=== PATIENT | male | born 1950 | race Caucasian/White ===

== ENCOUNTER → 2018-04-22 | Outpatient (CLI) | payer MEDICARE, OTHER ==
[~2018-04-22] MED LIST: ACTIGALL300 MG PO; ALLOPURINOL 10100 M1 PO; ASPIR 8181 MG PO; B-COMPLEX TABL0.4 MG PO; CHOLESTYRAMINE P4 GM PO; COZAAR 25 MG TA25 M2 PO; CYCLOSPORINE25 M1 PO; FLECAINIDE ACET50 M1 PO; FOLIC ACID1 MG PO; LOPRESSOR25 PO; LOPRESSOR50 PO; MYCOPHENOLIC A360 MG PO; PREDNISONE 5 MG5 M1 PO; ROCEPHIN 11 GM/1001 IV; SODIUM BICARB PO; VITAMIN D3400 UNIT PO; [UNRECOGNIZED DRUG - OTHER]
== END ==
LOC: M.LAB 10:30 → M.MRI 11:30
DX: N28.1 Cyst of kidney, acquired (principal); R50.9 Fever, unspecified; R79.89 Other specified abnormal findings of blood chemistry; E11.9 Type 2 diabetes mellitus without complications; M81.0 Age-related osteoporosis without current pathological fracture; Z94.4 Liver transplant status; Z90.49 Acquired absence of other specified parts of digestive tract

== ENCOUNTER → 2018-04-26 | Outpatient (CLI) | payer MEDICARE, OTHER ==
[2018-04-26 15:01] LABS: HEMATOCRIT 30.4 % (42.0-52.0); HEMOGLOBIN 10.2 gm/dL (14.0-18.0); MCH 30.3 pg (26.0-34.0); MCHC 33.5 g/dL (28.0-37.0); MCV 90.3 fL (80.0-100.0); MPV 8.4 fl. (7.2-11.1); NUCLEATED RBCS 0 /100WBC; PLATELET COUNT* 244 thou/uL (150-400); RBC 3.37 mil/uL (4.50-6.00); RDW-CV 14.8 % (10.5-14.5); WBC 11.8 thou/uL (4.0-11.0)
[2018-04-26 15:23] LABS: ALBUMIN 3.1 g/dL (3.4-5.0); CREATININE 1.6 mg/dL (0.6-1.3); POTASSIUM 4.2 mmol/L (3.5-5.1); TOTAL BILIRUBIN 4.5 mg/dL (<0.1-1.0); TOTAL PROTEIN 6.8 g/dL (6.4-8.2)
[2018-04-26 15:49] LABS: ABSOLUTE LYMPHOCYTES 0.5 thou/uL (0.8-5.3); ABSOLUTE MONOCYTES 1.5 thou/uL (0.0-1.2); ABSOLUTE NEUTROPHILS 9.8 thou/uL (1.6-8.1); PLATELET ESTIMATE ADEQUATE
== END ==
LOC: M.LAB 14:27
PROVIDERS: Nurse Practitioner Adult Health
DX: R68.83 Chills (without fever) (principal); R11.10 Vomiting, unspecified; M81.0 Age-related osteoporosis without current pathological fracture; Z94.4 Liver transplant status

== ENCOUNTER 2018-04-27 09:41 | Inpatient (IN) | payer MEDICARE, OTHER ==
[2018-04-27] VITALS (8 sets, daily range): BP systolic 94–115; BP diastolic 51–63
[~2018-04-27] VITALS: Ht 162.6 cm; Wt 47.5 kg
--- NOTE | ~2018-04-27 | PROC ---
[address] [address] PROCEDURE REPORT Name: VICENTE LEHMAN Room: [address] IN M.R.#: [id number] Admission: 04/27/18 Attend Phys: Jazz Donald Discharge: 05/03/18 Date of : 50 Report #: [id number] THIS REPORT FOR: //name// For GI report, please see the Provation report in Perceptive 7 content. By: 0857Medical Records Staff JORDY /EVE
[2018-04-27 09:55] LABS: URINE BLOOD 2+ (Negative); URINE CLARITY CLEAR; URINE COLOR YELLOW; URINE GLUCOSE-RANDOM NEGATIVE (Negative); URINE KETONES NEGATIVE (Negative); URINE LEUKOCYTES-REFLEX NEGATIVE (Negative); URINE NITRITE-REFLEX NEGATIVE (Negative); URINE PROTEIN 1+ (Negative); URINE SPECIFIC GRAVITY 1.015 (1.005-1.030); URINE UROBILINOGEN 0.2 E.U./dl (0.2-1.0)
[2018-04-27 09:59] LABS: ICTOTEST (BILI CONFIRMATORY) Positive (Negative); URINE BILIRUBIN 2+ (Negative)
[2018-04-27] MEDS ORDERED: CYCLOSPORINE25 M1 PO (10:03)
[2018-04-27] MEDS ORDERED: [UNRECOGNIZED DRUG - OTHER] (10:04)
[2018-04-27] MEDS ORDERED: ACTIGALL300 MG PO (10:04)
[2018-04-27] MEDS ORDERED: FOLIC ACID1 MG PO (10:04)
[2018-04-27 10:05] LABS: BACTERIA-REFLEX 1-9 Few /HPF (None Seen); MUCUS None Seen strn/LPF (None Seen); SQUAMOUS 0-3 Few /LPF (0-3); URINE RBC 3-10 Few /HPF (0-2); URINE WBC-REFLEX 0-5 Rare /HPF (0-5)
[2018-04-27] MEDS ORDERED: ALLOPURINOL 10100 M1 PO (10:05)
[2018-04-27] MEDS ORDERED: PREDNISONE 5 MG5 M1 PO (10:05)
[2018-04-27 10:06] LABS: CASTS None Seen /LPF (None Seen); CRYSTALS None Seen /LPF (None Seen)
[2018-04-27] MEDS ORDERED: ASPIR 8181 MG PO (10:06)
[2018-04-27] MEDS ORDERED: B-COMPLEX TABL0.4 MG PO (10:06)
[2018-04-27] MEDS ORDERED: VITAMIN D3400 UNIT PO (10:06)
[2018-04-27] MEDS ORDERED: COZAAR 25 MG TA25 M2 PO (10:08)
[2018-04-27] MEDS ORDERED: SODIUM BICARB PO (10:08)
[2018-04-27 10:13] LABS: HEMATOCRIT 28.9 % (42.0-52.0); NUCLEATED RBCS 0 /100WBC; WBC 11.6 thou/uL (4.0-11.0)
[2018-04-27 10:17] LABS: HEMOGLOBIN 9.9 gm/dL (14.0-18.0); MCH 30.5 pg (26.0-34.0); MCHC 34.2 g/dL (28.0-37.0); MCV 89.1 fL (80.0-100.0); MPV 8.9 fl. (7.2-11.1); PLATELET COUNT* 206 thou/uL (150-400); RBC 3.24 mil/uL (4.50-6.00); RDW-CV 14.8 % (10.5-14.5)
[2018-04-27 10:20] LABS: ANION GAP 11 mmol/L (7-16); APTT 34.1 Seconds (25.0-31.3); BUN 40 mg/dL (7-18); CHLORIDE 88 mmol/L (98-107); CO2 22 mmol/L (21-32); GLUCOSE 123 mg/dL (70-99); INR 1.1; POTASSIUM 3.8 mmol/L (3.5-5.1); PROTIME 10.7 Seconds (9.20-11.50); SODIUM 121 mmol/L (136-145)
[2018-04-27 10:31] LABS: ALBUMIN 2.8 g/dL (3.4-5.0); ALKALINE PHOSPHATASE 352 U/L (46-116); LIPASE 331 U/L (73-393); NT-PRO BRAIN NAT PEPTIDE 6467 pg/mL (<300); SGOT 60 U/L (15-37); SGPT 72 U/L (30-65); TOTAL BILIRUBIN 4.5 mg/dL (<0.1-1.0); TOTAL PROTEIN 6.9 g/dL (6.4-8.2); TROPONIN-I LEVEL <0.06 ng/mL (<0.06)
[2018-04-27] MEDS ORDERED: CHOLESTYRAMINE P4 GM PO (10:36)
[2018-04-27 11:00] LABS: ABSOLUTE LYMPHOCYTES 0.5 thou/uL (0.8-5.3); ABSOLUTE MONOCYTES 1.2 thou/uL (0.0-1.2); PLATELET ESTIMATE ADEQUATE
[2018-04-27 11:02] LABS: MACROCYTES Occasional; MICROCYTES Occasional; POLYCHROMASIA Occasional
--- NOTE | 2018-04-27 13:17 | NUR ---
PT ADMITTED TO ICU ROOM 2 AROUND 1250. REFER TO ASSESSMENT. PT HAS NO C/O PAIN AT TIME OF ADMISSION. PT REPORTS THAT HE HAS EPIGASTRIC ABDOMINAL PAIN WITH PALPATION. VSS. PT NOTED TO BE IN SR WITH RATE IN THE 90'S. PT VOICES NO CONCERNS AT THIS TIME. AT BEDSIDE. CLWR. WCTM.
--- NOTE | 2018-04-27 14:33 | EKG ---
[place] [address] ELECTROCARDIOGRAM REPORT Name: VICENTE LEHMAN Room: [address] IN M.R.#: [id number] Admission: 04/27/18 Attend Phys: Jazz Donald Discharge: Date of : 50 Report #: [id number] THIS REPORT FOR: //name// [facility] ED Test Date: 2018-04-27 Test Time: 09:52:06 Pat Name: VICENTE LEHMAN Department: Room: Gender: On Awake Counselor: : 1950 Requested By: Gustabo Vargas Order Number: [id number] MD: Nilton Gonzales Measurements Intervals [place] Rate: 126 P: 55 FL: 156 QRS: -39 QRSD: 90 T: 67 QT: 296 QTc: 429 Interpretive Statements Sinus tachycardia Left axis deviation ST elevation suggests consistent with early repolarization No previous ECG available for comparison Electronically Signed On 04-27-2018 14:32:56 CDT by Nilton Gonzales [email or web address] <ELECTRONICALLY SIGNED> By: Nilton Gonzales MD, [facility] 04/27/18 1432 0952 [id number] Nilton Gonzales MD, [facility] /EPI
--- NOTE | 2018-04-27 14:33 | EKG ---
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
--- NOTE | 2018-04-27 15:48 | 2DMMODE ---
[place] [address] 2 D/M-MODE ECHOCARDIOGRAM Name: VICENTE LEHMAN Rosario Room: [address] IN [facility]#: [id number] Admission: 04/27/18 Attend Phys: Shagufta Wu Discharge: Date of : 50 Date of Service: 04/27/18 1547 Report #: [id number] THIS REPORT FOR: //name// APPROVED REPORT Study performed: 04/27/2018 14:51:06 EXAM: Comprehensive 2D, Doppler, and color-flow Echocardiogram Patient Location: In-Patient Room #: 002 Status: routine BSA: 1.51 HR: 86 bpm BP: 101/51 mmHg Rhythm: NSR Other Information Study Quality: Good Indications Arrhythmia 2D Dimensions LVEF(%): 62.37 (>50%) IVSd: 10.77 (7-11mm) LVOT Diam: 18.28 (18-24mm) LVDd: 41.04 mm PWd: 10.44 (7-11mm) Ascending Ao: 30.99 (22-36mm) LVDs: 27.39 (25-40mm) Aortic Root: 29.30 mm Bello's LVEF: 62.37 % Volumes Left Atrial Volume (Systole) LA ESV Index: 30.70 mL/m2 Aortic Valve AoV Peak Misael.: 1.14 m/s AO Peak Gr.: 5.16 mmHg LVOT Max P.45 mmHg AO Mean Gr.: 3.04 mmHg LVOT Mean P.62 mmHg LVOT Max V: 0.93 m/s AO V2 VTI: 18.27 cm LVOT Mean V: 0.58 m/s KIMBERLY (VTI): 2.17 cm2 LVOT V1 VTI: 15.15 cm Mitral Valve E/A Ratio: 1.96 [place] [address] 2 D/M-MODE ECHOCARDIOGRAM Name: VICENTE LEHMAN Rosario Room: [address] IN .R.#: [id number] Admission: 04/27/18 Attend Phys: Shagufta Wu Discharge: Date of : 50 Date of Service: 04/27/18 1547 Report #: [id number] MV Decel. Time: 169.90 ms MV E Max Misael.: 0.77 m/s MV PHT: 49.27 ms MVA (PHT): 4.47 cm2 TDI E/Lateral E': 3.85 E/Medial E': 3.50 Medial E' Misael.: 0.22 m/s Lateral E' Misael.: 0.20 m/s Pulmonary Valve PV Peak Misael.: 1.12 m/s PV Peak Gr.: 4.98 mmHg Tricuspid Valve RAP Estimate: 5.00 mmHg TR Peak Gr.: 22.41 mmHg RVSP: 27.41 mmHg PA Pressure: 27.41 mmHg Left Ventricle The left ventricle is normal size. There is normal LV segmental wall motion. There is normal left ventricular wall thickness. Left ventricular systolic function is normal. LVEF is 55-60%. The left ventricular diastolic function is normal. Right Ventricle Right ventricle is dilated. The right ventricular systolic function is normal. Atria The left atrium size is normal. Right atrium is dilated. Aortic Valve The aortic valve is normal in structure. No aortic regurgitation is present. There is no aortic valvular stenosis. Mitral Valve The mitral valve is normal in structure. Trace mitral regurgitation. No evidence of mitral valve stenosis. Tricuspid Valve The tricuspid valve is normal in structure. Mild tricuspid regurgitation. No pulmonary hypertension. The RVSP is 28 mmHg. Pulmonic Valve The pulmonary valve is normal in structure. [place] [address] 2 D/M-MODE ECHOCARDIOGRAM Name: VICENTE LEHMAN Room: [address] IN [facility]#: [id number] Admission: 04/27/18 Attend Phys: Shagufta Wu Discharge: Date of : 50 Date of Service: 04/27/18 1547 Report #: [id number] valvular regurgitation. Great Vessels The aortic root is normal in size. IVC is normal in size and collapses with >50% inspiration Pericardium There is no pericardial effusion. <Conclusion> The left ventricle is normal size. There is normal left ventricular wall thickness. Left ventricular systolic function is normal. LVEF is 55-60%. The left ventricular diastolic function is normal. Mild tricuspid regurgitation. No pulmonary hypertension. The RVSP is 28 mmHg. IVC is normal in size and collapses with >50% inspiration <ELECTRONICALLY SIGNED> By: Nilton Gonzales MD, FACC 04/27/18 1547 1547 1547 Nilton Gonzales MD, FACC /INF
--- NOTE | 2018-04-27 18:05 | NUR ---
PT PROGRESSING TOWARDS GOALS THIS SHIFT. VSS. TELE SR WITH RATE IN THE 80-90'S. IV ABTS ADMINISTERED ORDERED. PT GIVEN IVF BOLUS PER SEPSIS PROTOCOL. MAG REPLACED THIS SHIFT. NO OTHER CONCERNS AT THIS TIME. CLWR. WCTM.
[2018-04-28] VITALS: BP 97/55
[2018-04-28 02:00] VITALS: BP 106/59
[2018-04-28 04:00] VITALS: BP 109/62
[2018-04-28 04:39] LABS: INR 1.2; PROTIME 11.4 Seconds (9.20-11.50)
[2018-04-28 04:45] LABS: HEMATOCRIT 23.5 % (42.0-52.0); MCH 31.3 pg (26.0-34.0); MCHC 34.1 g/dL (28.0-37.0); MPV 9.2 fl. (7.2-11.1); RBC 2.56 mil/uL (4.50-6.00); RDW-CV 15.1 % (10.5-14.5); WBC 5.2 thou/uL (4.0-11.0)
[2018-04-28 04:51] LABS: ALBUMIN 2.2 g/dL (3.4-5.0); CALCIUM 8.5 mg/dL (8.5-10.1); CREATININE 1.6 mg/dL (0.6-1.3); TOTAL BILIRUBIN 2.2 mg/dL (<0.1-1.0); TOTAL PROTEIN 5.9 g/dL (6.4-8.2)
--- NOTE | 2018-04-28 05:39 | NUR ---
ASSUMED CARE OF PATIENT AT 1900. VSS, AFEBRILE. UP TO BSC OFTEN TO VOID AND BM. VERY LOOSE STOOL, NO ODOR. DENIES PAIN, SOA OR N/V. CALLS OUT APPROPRIATELY. REMAINS IN S/R. PROGRESSING TOWARDS POC GOALS SLOWLY.
[2018-04-28 06:00] VITALS: BP 106/59
--- NOTE | 2018-04-28 08:01 | CON ---
[address] [address] CONSULTATION Name: VICENTE LEHMAN Rosario Room: [address] IN M.R.#: [id number] Admission: 04/27/18 Attend Phys: Jazz Donald Discharge: Date of : 50 Report #: [id number] THIS REPORT FOR: //name// CC: Kimmie Wu DATE OF SERVICE: 04/27/2018 Infectious Disease Consultation DATE OF ADMISSION: 04/27/2018 ATTENDING PHYSICIAN: Dr. Wu. REASON FOR EVALUATION: Septicemia. HISTORY OF PRESENT ILLNESS: Chart reviewed, patient examined. This is a 67-year-old gentleman with history of hepatic transplantation. This has been longstanding. He is on combination immunosuppressive therapy, who has actually not been followed by packer and carry out, has been feeling generally worse, somewhat nonspecifically perhaps some malaise, has had some anorexia with poor p.o. intake and some weight loss as well and abdominal related discomfort with recent fevers. He was evaluated and as part of the evaluation, outpatient blood culture was collected, now growing Gram-positive cocci. He returned today and was admitted to the hospital. He is in the intensive care unit. LFTs have chronically been elevated with a total bilirubin of 5.[address] abdomen and pelvis: Diffuse fluid throughout the colon suggesting diarrhea. No obvious inflammatory small or large bowel process. No acute intrinsic hepatic abnormalities. He has been started empirically on vancomycin, as well as meropenem. He is fairly lucid at this point. He denies any particular exposure history that he is aware of, although he does spend a lot of time cutting grass. No animal exposure, no dietary indiscretion. ALLERGIES: Listed to PHENOTHIAZINE, CEFUROXIME, PROMETHAZINE. CURRENT MEDICATIONS: Include levofloxacin, vancomycin and meropenem, as well as pantoprazole. Additional medicines include cyclosporine, mycophenolate, prednisone, ursodiol, folic acid, allopurinol, aspirin, cholecalciferol, losartan, and cholestyramine. PAST MEDICAL HISTORY: History of hepatitis C that lead to cirrhosis and liver transplant in 1989, hypertension, reflux, hyperlipidemia, headache, heart defect with surgery in 1958. SOCIAL HISTORY: Nonsmoker, [place] [address] CONSULTATION Name: VICENTE LEHMAN Room: [address] IN [facility].#: [id number] Admission: 04/27/18 Attend Phys: Jazz Donald Discharge: Date of : 50 Report #: [id number] FAMILY HISTORY: Noncontributory. REVIEW OF SYSTEMS: Some mild dyspnea. PHYSICAL EXAMINATION: GENERAL: He is certainly uncomfortable. He is in ybeo-tl-kvemjhwu distress. He does appear ill, not overtly toxic. VITAL SIGNS: Temperature 99.5 max, more recently 99.2, pulse 85, respirations 20, blood pressure is 99/57. SKIN: Warm, is jaundiced. HEENT: Unremarkable. NECK: Supple. LUNGS: Clear breath sounds, somewhat diminished. HEART: Regular. I do not appreciate a murmur. ABDOMEN: Mildly distended. It is soft. There are no overt peritoneal signs. GENITOURINARY AND RECTAL: Deferred. DATA: Echo, EF of 55% to 60%. No significant valvular abnormalities. CT abdomen and pelvis as described above. CBC: White count 11.6, H and H 9.9 and 28.9, platelets of 206, did have 2% bandemia. Electrolytes: Sodium 121, potassium 3.8, chloride 88, bicarbonate is 22, BUN and creatinine 40 and 2.0, anion gap of 11. AST of 60, ALT of 72, total bilirubin of 4.5, albumin of 2.8. Total protein 6.9. Lactic acid 1.3. Blood cultures collected on the 2nd is Gram-positive cocci, awaiting ID and susceptibility. Chest x-ray: Some mild chronic interstitial changes, no acute process. Urinalysis: 0 to 5 white cells. ASSESSMENT: Positive blood culture in setting of immunosuppression. He has had chronically elevated liver function tests. At one point in 2016, he apparently underwent a liver transplantation. There was no evidence of rejection at that point, did discussion about possibility of false positive in this setting with the blood culture, will await. It may give us some clue. I agree with empiric treatment though given his high risk of potentially severe infection. We will wait to know . Secondary blood cultures have been collected as well. <ELECTRONICALLY SIGNED> By: Lorne Zendejas MD 04/28/18 0801 1746 [id number] Zendejas MD /nt
--- NOTE | 2018-04-28 10:32 | NUR ---
ORDER RECEIVED TO TRANSFER CAR OF PATIENT TO MED/TELE UNIT. ROOM OBTAINED AND REPORT CALLED TO BRADY VELASQUEZ. NEW MEDICATION ORDERS RECEIVED PATIENT WAS TRANSFERING UNITS. PATINET HAS BEEN BRADYCARDIC TO TACHYCARDIC IN ICU, CARDIOLOGY ADJUSTED MEDICATIONS TO CORRECT DISRHYTHMIA. STABLE FOR TRANSFER TO MED/TELE.
[2018-04-28 10:55] VITALS: BP 121/67
--- NOTE | 2018-04-28 10:59 | NUR ---
PATIENT CAME TO THE FLOOR FROM THE ICU IN STABLE CONDITION, NO COMPLAINTS AT THIS TIME. ORIENTED TO ROOM, QUESTIONS ANSWERED FOR PATIENT AND FAMILY. VITAL SIGNS STABLE. CALL LIGHT IS IN REACH, IS AT BEDSIDE. WILL CONTINUE TO MONITOR.
[2018-04-28 15:42] VITALS: BP 120/68
--- NOTE | 2018-04-28 17:32 | NUR ---
PATIENT CAME TO THE FLOOR FROM THE ICU IN STABLE CONDITION. NO COMPLAINTS OF ANY KIND AT THIS TIME. PATIENT IS UP AD CLEO IN ROOM AND HAS BEEN AMBULATING IN THE HALLS WITH . VITAL SIGNS HAVE BEEN STABLE ON ROOM AIR. CALL LIGHT IS IN REACH, WILL CONTINUE TO MONITOR.
[2018-04-29 00:01] VITALS: BP 116/71
[2018-04-29 04:33] VITALS: BP 116/65
[2018-04-29 05:12] LABS: ALBUMIN 2.2 g/dL (3.4-5.0); CREATININE 1.3 mg/dL (0.6-1.3); PHOSPHORUS* 2.8 mg/dL (2.5-4.9); POTASSIUM 3.5 mmol/L (3.5-5.1)
--- NOTE | 2018-04-29 05:21 | NUR ---
PATIENT SLEPT WELL DURING THIS SHIFT. PT DENIES PAIN/NAUSEA. PT UP AD CLEO TO BATHROOM. PT WITH FLUIDS/ANTIBIOTICS INFUSING PER DR ORDER. PT TACHY AND IRREGULAR ON ACCOUNTING INTERN. PT DENIES NEEDS AT THIS TIME. FREQUENTLY USED ITEMS AND CALL LIGHT WITHIN REACH. SIDERAILS UPX2. WILL CONTINUE TO MONITOR.
[2018-04-29 09:12] VITALS: BP 134/72
--- NOTE | 2018-04-29 10:32 | CON ---
[facility] [address] [place] [address] CONSULTATION Name: VICENTE LEHMAN Room: [address] IN M.R.#: [id number] Admission: 04/27/18 Attend Phys: Jazz Donald Discharge: Date of : 50 Report #: [id number] THIS REPORT FOR: //name// CC: Kimmie Wu DATE OF SERVICE: 04/27/2018 INDICATION: Supraventricular tachycardia. HISTORY OF PRESENT ILLNESS: The patient is a very pleasant 67-year-old gentleman status post orthotopic liver transplant 1989 in [place]. He is on antirejection medication for this. He was presenting to the hospital with 2 days' worth of fever and chills. He was unaware of his tachycardia. He was not having palpitations or chest discomfort. PAST CARDIAC HISTORY: He had "hole in his heart" repaired at the age of 9. I assume this was an ASD. He denies any other significant cardiac history. PAST MEDICAL HISTORY: 1. Status post orthotopic liver transplant, 1989. 2. History of hepatitis C, prior to that. 3. Hypertension. 4. Gastroesophageal reflux disease. 5. Hyperlipidemia. 6. History of common bile duct stones. 7. History of sepsis. 8. ASD repair as a child. ALLERGIES: CEFUROXIME, PHENOTHIAZINES, PROMETHAZINE. HOME MEDICATIONS: Cyclosporine 2 capsules p.o. b.i.d., mycophenolate mofetil 360 mg b.i.d., Ursodiol 1 capsule t.i.d., folate 1 mg t.i.d., allopurinol 100 mg 3 tablets daily, prednisone 2.5 mg daily, B complex tablet 50 mg daily, aspirin 81 mg daily, vitamin D 400 units daily, sodium bicarbonate tablet 1 b.i.d., losartan 25 mg half a tablet daily, cholestyramine 4 g daily. FAMILY HISTORY: Noncontributory. SOCIAL HISTORY: The patient does not smoke. He does not drink alcohol. PHYSICAL EXAMINATION: VITAL SIGNS: Blood pressure 105/55, pulse 90 and regular. GENERAL: This is a thin, pleasant gentleman, in no [place] [address] CONSULTATION Name: VICENTE LEHMAN Room: [address] IN [facility].#: [id number] Admission: 04/27/18 Attend Phys: Jazz Donald Discharge: Date of : 50 Report #: [id number]. HEENT: Extraocular muscles intact. Mucous membranes moist. NECK: Shows no jugular venous distention. There are no carotid bruits. CHEST: Reveals clear lung patterson. CARDIOVASCULAR: Reveals a regular rhythm, normal S1 and S2. I do not appreciate gallop or murmur. ABDOMEN: Reveals normal bowel sounds. The abdomen is soft, nontender. EXTREMITIES: Shows no edema. EKG on arrival shows supraventricular tachycardia. Labs are reviewed. Sodium 121, potassium 3.8, chloride 88, bicarbonate 22, BUN 40, creatinine 2.0, serum glucose 123, total bilirubin 4.5, alkaline phosphatase 352, ALT 72. NT-proBNP 6467. Troponin less than 0.06. White blood cell count 11.6, hemoglobin 9.9, platelet count 206,000. Chest x-ray: Mild chronic interstitial change without chronic acute lung disease. IMPRESSION AND RECOMMENDATIONS: 1. Paroxysmal supraventricular tachycardia, resolved with a single bolus of Adenocard. Blood pressure low normal presently. We will follow clinically and initiate medications if need be. 2. We will use Adenocard p.r.n. at this point in time. Echocardiogram ordered and pending. 3. Status post orthotopic liver transplant. Continuing antirejection medications as outlined above. 4. Sepsis, etiology not clear. Gastroenterology following. 5. Hypertension. Blood pressure presently low normal. He is on losartan traditionally. We will hold at this point in time. <ELECTRONICALLY SIGNED> By: Nilton Gonzales MD, FACC 04/29/18 1032 [id number] [id number] Gonzales MD, FACC /nt
--- NOTE | 2018-04-29 11:52 | NUR ---
INITIAL ASSESSMENT: Pt evaluated for d/c planning needs. Reviewed chart and spoke with nurse, pt and spouse. Pt is alert and oriented. Pt lives in house with spouse and was independent with ADL's prior to admission. Pt has walker and cane, but does not use on a regular basis. Pt had home health in the distant past. Pt remains active in the community and is still driving. Pt plans on returning home on d/c from hospital. Will remain available to assist as needed.
[2018-04-29 12:01] VITALS: BP 101/59
[2018-04-29 15:25] VITALS: BP 124/70
[2018-04-29 16:36] LABS: ALBUMIN 2.6 g/dL (3.4-5.0); DIRECT BILIRUBIN 1.3 mg/dL (<0.1-0.3); TOTAL BILIRUBIN 1.5 mg/dL (<0.1-1.0); TOTAL PROTEIN 6.8 g/dL (6.4-8.2)
--- NOTE | 2018-04-29 18:51 | NUR ---
PATIENT HAS BEEN ALERT AND ORINETED TODAY VERY PLEASANT, UP AD CLEO IN ROOM ROOM AND WALKING IN THE HALLWAYS WITH . PATIENT HAS NO COMPLAINTS OF PAIN AT THIS TIME. APPETITE IS GOOD, TOLERATING DIET WELL. PATIENT WILL BE NPO AFTER MIDNIGHT FOR PROCEDURE TOMORROW. VITAL SIGNS HAVE BEEN STABLE ON ROOM AIR, WILL CONTINUE TO MONITOR.
[2018-04-29 20:00] VITALS: BP 127/70
[2018-04-30] VITALS: BP 115/64
[2018-04-30 03:55] VITALS: BP 158/74
[2018-04-30 03:57] LABS: HEMATOCRIT 27.6 % (42.0-52.0); HEMOGLOBIN 9.4 gm/dL (14.0-18.0); MCH 30.9 pg (26.0-34.0); MPV 8.5 fl. (7.2-11.1); RBC 3.04 mil/uL (4.50-6.00); RDW-CV 15.4 % (10.5-14.5); WBC 5.4 thou/uL (4.0-11.0)
[2018-04-30 04:09] LABS: ALBUMIN 2.5 g/dL (3.4-5.0); CALCIUM 8.5 mg/dL (8.5-10.1); CREATININE 1.2 mg/dL (0.6-1.3); TOTAL BILIRUBIN 1.4 mg/dL (<0.1-1.0); TOTAL PROTEIN 6.5 g/dL (6.4-8.2)
[2018-04-30 04:11] LABS: POTASSIUM 2.8 mmol/L (3.5-5.1)
--- NOTE | 2018-04-30 05:25 | NUR ---
PT SLEPT AT INTERVALS DURING THE NIGHT, PLEASANT, NPO SINCE MIDNIGHT FOR PROCEDURE TODAY, UP AD CLEO, CALL LIGHT IN REACH, WILL CONTINUE TO MONITOR
[2018-04-30 07:55] VITALS: BP 129/69
[2018-04-30 09:51] VITALS: BP 158/74
--- NOTE | 2018-04-30 11:35 | NUR ---
FARAZ faxed information to [employer] [facility] [phone] fax [phone] to check pt benefits for IV abx just in case pt would be going home with IV abx at time of dc. FARAZ to continue to follow to assist with safe dc planning.
--- NOTE | 2018-04-30 16:21 | NUR ---
ASSUMED CARE OF PATIENT AT 1604 AFTER TRANSFER TO ROOM 221 FROM MED/SURG ROOM 309. PATIENT AWAKE, ALERT, AND ORIENTED APPROPRIATELY. UP AD CLEO. DENIES NEEDS AT THIS TIME. CALL LIGHT WITHIN REACH. NURSING WILL CONTINUE TO MONITOR.
[2018-04-30 20:00] VITALS: BP 130/75
[2018-05-01] VITALS: BP 94/56
[2018-05-01 04:00] VITALS: BP 127/74
[2018-05-01 05:03] LABS: HEMATOCRIT 25.8 % (42.0-52.0); HEMOGLOBIN 8.7 gm/dL (14.0-18.0); MCHC 33.7 g/dL (28.0-37.0); MCV 91.7 fL (80.0-100.0); RBC 2.81 mil/uL (4.50-6.00); RDW-CV 15.1 % (10.5-14.5); WBC 4.1 thou/uL (4.0-11.0)
--- NOTE | 2018-05-01 05:07 | NUR ---
PATIENT RESTED IN BED, NO ACUTE CHANGES. PATIENT DID NOT SHOW SIGNS OF DISTRESS. FALL PRECAUTIONS IN PLACE, CALL LIGHT WITHIN REACH. PATIENT IS NPO.
[2018-05-01 05:21] LABS: ALBUMIN 2.2 g/dL (3.4-5.0); CREATININE 1.3 mg/dL (0.6-1.3); POTASSIUM 3.4 mmol/L (3.5-5.1); TOTAL BILIRUBIN 1.2 mg/dL (<0.1-1.0); TOTAL PROTEIN 5.6 g/dL (6.4-8.2)
[2018-05-01 07:50] VITALS: BP 134/97
--- NOTE | 2018-05-01 09:53 | NUR ---
RECEIVED REPORT FROM MARKUS AND ASSUMED CARE OF PT @ 7752.PT IS A/O,VSS,TRACING SR ON THE MONITOR.LUNG SOUNDS ARE CLEAR.LAST BM WAS YESTERDAY.IV LEFT FOREARM PATENT WITH FLUIDS RUNNING @ 100ML/HR.IV RIGHT WRIST PATENT AND SALINE LOCKED.PT IS CALM AND COOPERATIVE WITH NO C/O PAIN AT TIME OF ASSESSMENT.PT IS UP AD CLEO.LEFT RESTING IN BED WITH CALL LIGHT WITHIN REACH.PT AMBULATED IN HALLWAY THIS AM.PT WAITING FOR ERCP PROCEDURE TO BE COMPLETED.WILL CONTINUE TO MONITOR.
[2018-05-01 15:43] VITALS: BP 147/84
--- NOTE | 2018-05-01 18:27 | NUR ---
VSS,CARDIAC MONITORING IN PLACE WITH NO CHANGES.PT PROGRESSING TOWARDS GOALS.DENIED PAIN.IVF INFUSING PER ORDERS.IV ANTIBIOTICS COMPLETED.PT COMPLETED ERCP PROCEDURE WITH NO COMPLICATIONS.NO NEW ORDERS.PT INFORMED OF PLAN OF CARE AND COMMUNICATES UNDERSTANDING.HOURLY ROUNDING COMPLETED FOR PT SAFETY.CALL LIGHT WITHIN REACH.WILL CONTINUE TO MONITOR FOR DURATION OF SHIFT.
[2018-05-01 20:00] VITALS: BP 121/72
[2018-05-02] VITALS (7 sets, daily range): BP systolic 107–140; BP diastolic 68–81
[2018-05-02 05:13] LABS: HEMATOCRIT 24.4 % (42.0-52.0); HEMOGLOBIN 8.3 gm/dL (14.0-18.0); MCHC 34.2 g/dL (28.0-37.0); MCV 90.6 fL (80.0-100.0); MPV 8.7 fl. (7.2-11.1); RBC 2.69 mil/uL (4.50-6.00); RDW-CV 15.3 % (10.5-14.5); WBC 3.7 thou/uL (4.0-11.0)
--- NOTE | 2018-05-02 05:24 | NUR ---
PATIENT RESTED IN BED, NO ACUTE CHAGES. PATIENT DENIES PAIN, PATIENT IS NOT SHOWING SIGNS OF DISTRESS. FALL PRECAUTIONS IN PLACE, CALL LIGHT WITHIN REACH, HOURLY ROUNDING OBSERVED.
[2018-05-02 06:03] LABS: ALBUMIN 2.2 g/dL (3.4-5.0); CALCIUM 7.9 mg/dL (8.5-10.1); MAGNESIUM 1.6 mg/dL (1.8-2.4); POTASSIUM 3.1 mmol/L (3.5-5.1); TOTAL BILIRUBIN 1.5 mg/dL (<0.1-1.0); TOTAL PROTEIN 5.5 g/dL (6.4-8.2)
--- NOTE | 2018-05-02 07:48 | NUR ---
RECEIVED REPORT FROM MARKUS AND ASSUMED CARE OF PT @ 8555.PT IS A/O,VSS,TRACING AFIB ON THE MONITOR.LUNG SOUNDS ARE CLEAR.LAST BM WAS YESTERDAY.IV RIGHT UPPER ARM PATENT WITH FLUIDS INFUSING PER ORDERS.PT IS CALM AND COOPERATIVE WITH NO C/O PAIN AT TIME OF ASSESSMENT.PT IS UP AD CLEO IN ROOM.CALL LIGHT WITHIN REACH.WILL CONTINUE TO MONITOR. GI SIGNED OFF.PT WANTS TO BE DISCHARGED.WAITING TO SEE HOSPITALIST.
--- NOTE | 2018-05-02 18:14 | NUR ---
VSS,MOOSE HUNTER IN PLACE WITH NO CHANGES THIS SHIFT.PT PROGRESSING TOWARDS GOALS.PT COMPLETED CT WITH CONTRAST TODAY.ELECTROLYTE REPLACEMENT.IVF INFUSING PER ORDERS.GI AND CARDIOLOGY SIGNED OFF OK WITH DISCHARGE ONCE OK.POSSIBLE DISCHARGE TOMORROW.HOURLY ROUNDING COMPLETED FOR PT SAFETY.CALL LIGHT WITHIN REACH.WILL CONTINUE TO MONITOR FOR DURATION OF SHIFT.
[2018-05-02 19:02] LABS: MAGNESIUM 1.6 mg/dL (1.8-2.4); POTASSIUM 3.9 mmol/L (3.5-5.1)
--- NOTE | 2018-05-02 20:00 | NUR ---
RECEIVED REPORT AND ASSUMED CARE OF PT, ASSESSMENT COMPLETED. PT DENIES AND COMPLAINTS. TELEMETRY ON SHOWING A-FIB. WILL CONT TO MONITOR AND ASSIST NEEDED.
[2018-05-03 04:00] VITALS: BP 142/90
[2018-05-03 05:14] LABS: HEMATOCRIT 25.5 % (42.0-52.0); HEMOGLOBIN 8.6 gm/dL (14.0-18.0); MCH 30.9 pg (26.0-34.0); MCV 91.1 fL (80.0-100.0); MPV 8.2 fl. (7.2-11.1); RBC 2.79 mil/uL (4.50-6.00); RDW-CV 15.2 % (10.5-14.5); WBC 4.3 thou/uL (4.0-11.0)
[2018-05-03 05:34] LABS: CALCIUM 7.2 mg/dL (8.5-10.1); CREATININE 1.2 mg/dL (0.6-1.3); MAGNESIUM 2.1 mg/dL (1.8-2.4); POTASSIUM 3.1 mmol/L (3.5-5.1)
--- NOTE | 2018-05-03 06:46 | NUR ---
SLEPT WELL ALL NIGHT. GAIT STEADY AROUND ROOM. TELEMETRY CONT TO SHOW A-FIB. NO CHANGE IN ASSESSMENT. ACHIEVED HS GOAL OF REST AND SAFETY. HOURLY ROUNDING OBSERVED.
[2018-05-03 08:00] VITALS: BP 132/86
--- NOTE | 2018-05-03 10:35 | NUR ---
ASSUMED RESPONSIBILITY OF PT THIS AM PT IS ALERT AND ORIENTED BUT FORGETFUL ABOUT CERTAIN MEDICATIONS OR EVENTS DENIES ANY PAIN REPLACING K+ TODAY REGULAR DIET TRACKING A FLUTTER ON THE MONITOR LSCTA [id number] LBM T-1 FAVIO IV GOING AT 100/H NS 1/2 PLAN FOR A PICC LINE TODAY TO GO HOME WITH IV ABT CALL LIGHT IN REACH WILL CONT TO MONITOR
[2018-05-03 12:00] VITALS: BP 122/66
[2018-05-03 13:27] VITALS: BP 122/66
--- NOTE | 2018-05-03 13:34 | NUR ---
CONSULTED TO PLACE PICC FOR PT NEEDING LOAN TELLER ATB. CHART REVIEWED. ORDER AND CONSENT NOTED. SPOKE WITH PT AND FAMILY. PT HAS HAD PICC BEFORE MANY YEARS AGO. REVIEW OF RISK AND BENNIFIT. VOICED UNDERSTANDING AND AGREED. RIGHT UPPER ARM ASSESSED WT ULTRASOUND. RIGHT BASILIC IDENTIFIED AND NOTED TO BE WIDLEY PATENT. 4FR SINGLE LUMAN POWRE INJECTABLE PICC PLACED PER HOSPITAL POLICY. LINE WAS TRIMMED TO 43CM. PT NOTED TO BE A-FIB/FLUTTER ON MONITOR. UNABLE TO CLEAR TIP LOCATION WITH 3CG. SO LINE WAS HUBBED AND STAT CHEST X-RAY ORDERED. X-RAY REPORT SHOWS TIP IN RIGHT ATRIUM AND NEEDS PULLED BACK 3CM. PER RECOMENDATION LINE WAS DRAWN BACK TO TOTAL OF 2CM OUT MAKING IT 3CM FROM HUB. LINE RESECURED. LINE RELEASED FOR USE.
[2018-05-03 13:53] VITALS: BP 122/66
--- NOTE | 2018-05-03 15:34 | NUR ---
Pt to dc to home today with IVABX. Faxed final orders to [facility]. CM to fax HH orders to [facility] once available, informed Ju at [facility] of referral. to transport home.
[2018-05-03] MEDS ORDERED: LOPRESSOR25 PO (16:26)
[2018-05-03] MEDS ORDERED: FLECAINIDE ACET50 M1 PO (16:27)
--- NOTE | 2018-05-03 17:29 | NUR ---
pt left with spouse and meds faxed to transplant team per Dr. Brewer request
--- NOTE | 2018-05-04 08:19 | CON ---
[address] [address] CONSULTATION Name: VICENTE LEHMAN Room: [address] IN M.R.#: [id number] Admission: 04/27/18 Attend Phys: Jazz Donald Discharge: 05/03/18 Date of : 50 Report #: [id number] THIS REPORT FOR: //name// CC: Kimmie Wu DATE OF SERVICE: 04/29/2018 REASON FOR CONSULTATION: Possible complex kidney cyst. HISTORY OF PRESENT ILLNESS: The patient is a 67-year-old male with a complex medical history. He has history of liver transplant at [facility] in the 1990s for hepatitis C. He was admitted here with fever and chills and positive blood cultures. He had a noncontrast abdominal CT on 04/27/2018 for abdominal pain. Nothing was noted in the kidneys at that time, but on my review, there appeared to be multiple lesions on the right kidney, possible cyst, but this was a noncontrast scan as he was in renal failure at that time. He had a followup renal ultrasound on the same day, which showed no hydronephrosis, but did show a "mass" in the superior right kidney with internal echoes. This was 2.8 cm. They think it could be a complex cyst versus a solid mass and could not exclude a solid mass. The patient denies any prior knowledge of this. He denies any kidney problems at baseline. PAST MEDICAL HISTORY: Liver transplant for hepatitis C, hypertension, GERD, hyperlipidemia, history of ERCP with stent placement, open heart surgery, skin cancer removal. ALLERGIES: TO PHENOTHIAZINE, CEFUROXIME AND PROMETHAZINE. MEDICATIONS: Reviewed from the inpatient record. FAMILY HISTORY: Noncontributory. SOCIAL HISTORY: The patient lives with his . He denies alcohol, tobacco or illegal drug use. REVIEW OF SYSTEMS: Twelve-point review of systems is negative except as noted above in HPI. PHYSICAL EXAMINATION: VITAL SIGNS: Temperature is 36.7, pulse is 82, respirations 16, blood pressure is 101/59. GENERAL: He is a well-developed, well-nourished, very thin white male in no acute distress. He is alert and oriented x 3. HEENT: Normocephalic, [place] [address] CONSULTATION Name: VICENTE LEHMAN Room: [address]#: [id number] Admission: 04/27/18 Attend Phys: Jazz Donald Discharge: 05/03/18 Date of : 50 Report #: [id number] LUNGS: Respirations are unlabored. HEART: Regular. ABDOMEN: Soft, nontender, nondistended. He has a transplant scar. GENITOURINARY: He has normal phallus and testes. He does have a left inguinal hernia. EXTREMITIES: Without clubbing, cyanosis or edema. LABORATORY DATA: His white count is 5.2, hemoglobin 8, platelets are 163. His BUN and creatinine on admission were 40 and 2.0. His creatinine has dropped to 1.3. On review of prior chart, he seems to range between 1.2-1.5 at baseline. Renal ultrasound and CT scan was reviewed and are as above per HPI. ASSESSMENT AND PLAN: The patient is a 67-year-old male with a prior liver transplant. He has a questionable complex cyst versus solid mass on his right kidney, superiorly measures 2.8 cm. He has had a noncontrast CT, but no contrasted studies. If Nephrology will allow us, we would probably like to get a CAT scan of the abdomen with and without IV contrast or an MRI would be sufficient; however, we will have to clear with him before giving him any contrast. Also, they noted his bladder was quite distended on the ultrasound. We will check a postvoid residual and sure he is not retaining. We will await approval from Nephrology before ordering any further scans. This can either be done inpatient or outpatient depending on how long he is here. <ELECTRONICALLY SIGNED> By: Merna Nguyen MD 05/04/18 0819 1408 [id number] Nguyen MD /nt
--- NOTE | 2018-05-04 09:12 | NUR ---
PT. DISCHARGED TO HOME PRIOR TO O.T. EVAL. PLEASE ORDER FURTHER O.T. SERVICES IF NEEDED.
--- NOTE | 2018-05-04 13:31 | EKG ---
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[facility] : 1950 Requested By: Jeremi Candelaria Order Number: [id number] Reading MD: Joe Ronquillo Measurements Intervals [place] Rate: 64 P: [place]: QRS: -56 QRSD: 106 T: 55 QT: 447 QTc: 462 Interpretive Statements Atrial flutter with predominant 4:1 AV block LAD, consider left anterior fascicular block Borderline low voltage, extremity leads Compared to ECG 04/27/2018 10:35:15 AV block, advanced (high-grade) now present Supraventricular tachycardia no longer present Electronically Signed On 05-04-2018 13:31:04 CDT by Joe Ronquillo [email or web address] <ELECTRONICALLY SIGNED> By: Joe Ronquillo MD, [facility] 05/04/18 1331 1555 1555 Joe Ronquillo MD, [facility] /EPI
--- NOTE | 2018-05-11 16:59 | CON ---
[address] [address] CONSULTATION Name: MORGAN LEHMANRY Rosario Room: [address] IN M.R.#: [id number] Admission: 04/27/18 Attend Phys: Jazz Donald Discharge: 05/03/18 Date of : 50 Report #: [id number] THIS REPORT FOR: //name// CC: Kimmie Wu DICTATED BY: Kimmie Cotto [facility] DATE OF SERVICE: 04/27/2018 Please note at the time of this dictation, the patient was seen and physically examined by myself. REASON FOR CONSULTATION: Abnormal MRCP and positive blood cultures. HISTORY OF PRESENT ILLNESS: This is a 67-year-old male who had not been seen by our office since 2007. At the last time that we saw the patient in 2007, he had an ERCP for choledocholithiasis with a noted stricture at the site of the anastomosis from his liver transplant in 1996 for HCV. He also was diagnosed with cholangitis and had 2 stents placed back in 2007 as well. He had done relatively well until 2016. He states in 2016, he had intermittent symptoms of feeling ill, running a fever up to 104, chilling, some nausea and vomiting that would last 24-36 hours and he said that occurred about 3-4 times that year. He went back to the [facility] where he had his liver transplant and complete workup was done there. I did not have any of the copies of that workup at the time when he was seen. He was told that everything was negative. In 2017, the patient states he had only a couple episodes of nothing of significance; however, since the beginning of this year, he has had several episodes compared to what it was in 2016. His last episode he states was in January of this year. His last set of labs that were done for the [facility] was the end of December. At that time, his total bilirubin was 1.2, alkaline phosphatase was 350, ALT was 52 and AST was 39. Hemoglobin at that time was 10.2. The patient also mentions that at the time of the office visit, he had probably lost about 10 pounds since the beginning of the year. After the patient was seen, MRCP was ordered which he had done and results showed filling defects in both the right intrahepatic bile duct and at the proximal most aspect of the common bile duct as well. His CBD was dilated as well at 13 mm. MRCP was done on 04/22. Received a phone call from [facility] this morning stating that the patient had positive blood culture for gram-positive cocci. The patient was then contacted and told that he needed to come to the Emergency Room for further evaluation. In talking to his on the phone prior to the arrival to the ER, he started feeling bad on Thursday with just overall not feeling well. He had some abdominal pain. He felt very nauseous. He was not eating or drinking very much. states that [place] [address] CONSULTATION Name: VICENTE LEHMAN Room: [address] IN M.R.#: [id number] Admission: 04/27/18 Attend Phys: Jazz Donald Discharge: 05/03/18 Date of : 50 Report #: [id number] calling, she had registered a temperature of 101. He did have some slight epigastric abdominal discomfort noted as well. ALLERGIES: PHENOTHIAZINE, PROMETHAZINE AND CEFUROXIME. PAST MEDICAL HISTORY: Liver transplant in 1996 secondary to HCV, history of hypertension, GERD and hyperlipidemia. PAST SURGICAL HISTORY: Transplant. He has had some skin cancer removed. In 2007, he had an ERCP with stent placement. In 1958, he had open heart surgery as well. MEDICATIONS FROM HOME: Include cyclosporine, mycophenolate, Actigall, folic acid, allopurinol, prednisone, B complex, aspirin, vitamin D, losartan and cholestyramine. FAMILY HISTORY: Noncontributory. SOCIAL HISTORY: Lives with his , otherwise negative for any alcohol, tobacco or illegal drug use. REVIEW OF SYSTEMS: Twelve-point review of systems is essentially negative except what is mentioned in the HPI. PHYSICAL EXAMINATION: VITAL SIGNS: Temperature 37.1, he was 37.5 on arrival to the ER; tachycardic, 107; respirations are 17; blood pressure 122/66. HEART: Regular rate and rhythm except tachycardic. He did have a bout of SVT, rate went up to the 170s-180s shortly after arrival. LUNGS: Diminished, but clear. ABDOMEN: Soft, positive bowel sounds in all 4 quadrants with some epigastric tenderness noted to touch. SKIN: Jaundiced. EYES: Scleral icterus noted. LABORATORY DATA: Hemoglobin is 9.9, hematocrit 28.9, white count is 11.6, platelets 206. PT 10.7, INR is 1.1. Sodium 121, potassium 3.8, chloride 88, CO2 of 22, BUN is 40, creatinine is 2, GFR is 33 and glucose is 123. CT shows mild steatosis and noted air in the ducts, otherwise essentially normal. Total bilirubin 4.5, alkaline phosphatase 352, ALT is 72 and AST is 60 along with positive aerobic and anaerobic gram-positive cocci noted in blood cultures that were obtained yesterday. IMPRESSION: 1. Cholangitis. 2. Positive blood cultures, [place] [address] CONSULTATION Name: VICENTE LEHMAN Room: [address] IN M.R.#: [id number] Admission: 04/27/18 Attend Phys: Jazz Donald Discharge: 05/03/18 Date of : 50 Report #: [id number] 3. Leukocytosis. 4. Elevated LFTs. 5. Acute kidney injury. 6. Hyponatremia. 7. Supraventricular tachycardia. 8. History of a liver transplant in 1995. PLAN: 1. Levaquin IV daily. 2. Fluid resuscitation NS 100 mL an hour. 3. Await Cardiology input regarding his recent bout of SVT. 4. The patient will need an ERCP, but will await stability of the patient's status before proceeding. 5. Further recommendations to be made once Dr. Wilson sees the patient later on today. Thank you for allowing us to participate in this patient's care. Please do not hesitate to call with any questions in regard to this consult. ADDENDUM I have personally seen and examined the patient and reviewed labs and imaging. The patient with symptoms of intermittent fever and anorexia, who also has been feeling poorly recently. He was seen in our office and blood work was ordered including blood cultures. These grew gram-positive cocci; therefore, the patient was contacted to present to hospital for admission and IV antibiotics. Upon admission, the patient found to have an electrolyte derangement with hyponatremia and sodium of 121 and abnormal magnesium and potassium levels as well. The patient has history of liver transplant going back to 1995 at [facility]. The reason for his liver transplant was cirrhosis secondary to hep C. I also had performed an ERCP back in 2007 for biliary stones. Reviewing his labs, his alkaline phosphatase is in range of 400. He has mild transaminitis in range of 1-1.5 normal. His bilirubin also has increased from 1.1 back in December to 4.5. I will order levels for his cyclosporine and mycophenolate. He will be on broad coverage antibiotics and ID will be consulted. Once we stabilize him with his electrolytes, we will consider performing the ERCP [place] [address] CONSULTATION Name: VICENTE LEHMAN Rosario Room: [address]#: [id number] Admission: 04/27/18 Attend Phys: Jazz Donald Discharge: 05/03/18 Date of : 50 Report #: [id number] system. The patient and his are agreeable with plan. We will continue following up with him very closely. <ELECTRONICALLY SIGNED> By: Jessa Wilson MD 05/11/18 1659 1234 [id number] Wilson MD /nicolette
--- NOTE | 2018-05-21 14:24 | CON ---
[address] [address] CONSULTATION Name: VICENTE LEHMAN Room: [address] IN M.R.#: [id number] Admission: 04/27/18 Attend Phys: Jazz Donald Discharge: 05/03/18 Date of : 50 Report #: [id number] THIS REPORT FOR: //name// CC: Kimmie Wu REASON FOR CONSULTATION: Acute kidney injury. CONSULTING PHYSICIAN: Dr. Wu. HISTORY OF PRESENT ILLNESS: A 67-year-old gentleman with no prior history of kidney disease, who had a liver transplant at [facility] in 1989 and was admitted with intermittent fevers and positive blood cultures with concerns for sepsis and cholangitis and elevated creatinine, which was up to 2 during this hospitalization, and he was placed on IV fluids as well as antibiotics. He currently has no complaints, denies any NSAID use. REVIEW OF SYSTEMS: Constitutional, psych, heme, eyes, ENT, respiratory, cardiac, GI, , endocrine, all negative except as documented. PAST MEDICAL HISTORY: History of hepatitis C, liver transplant in 1989 at [facility], hypertension, GERD, dyslipidemia, history of common bile duct stone and stenting. SOCIAL HISTORY: No tobacco. CURRENT MEDICATIONS: Reviewed. FAMILY HISTORY: Not pertinent in a 67-year-old gentleman. PHYSICAL EXAMINATION: VITAL SIGNS: Blood pressure 106/55, pulse 72, respirations 16, temperature 37.0. GENERAL: No acute distress. EYES: Extraocular movements intact. EARS: Externally normal. CARDIOVASCULAR: Regular rate. LUNGS: No crackles. ABDOMEN: Soft, nontender. LYMPHATICS: No significant pitting edema. PSYCHIATRIC: Awake, alert. LABORATORY DATA: White cell count 5.8, hemoglobin 8, platelets 163. Sodium 131, potassium 4, chloride 101, bicarbonate 17, BUN 41, creatinine 1.6, glucose 157, calcium 8.5[place] [address] CONSULTATION Name: VICENTE LEHMAN Room: [address]#: [id number] Admission: 04/27/18 Attend Phys: Jazz Donald Discharge: 05/03/18 Date of : 50 Report #: [id number] ASSESSMENT: 1. Acute kidney injury with admission creatinine of 1.6, up to 2 during his hospitalization. Renal ultrasound did not show any acute finding. CK was okay. Baseline creatinine is unknown. 2. Hyponatremia. Sodium was 121 on admission, corrected up to 131 with a 10-point correction over 19 hours. 3. Anemia. Defer to Internal Medicine. 4. Low bicarbonate with a CO2 of 17. 5. Hypoalbuminemia. 6. Hematuria noted on urinalysis. 7. Proteinuria noted on urinalysis. 8. History of liver transplant in 1989 secondary to hepatitis C related to blood transfusion. 9. Gram-positive cocci septicemia. 10. Cholangitis. 11. Kidney ultrasound demonstrating possible solid and/or right complicated renal cyst, 2.8 cm in size. 12. History of aqc-tanvwfp-jahmclqoh diabetes. PLAN: 1. We will recheck sodium now to ensure that it is not correcting overly rapidly. 2. ID is following and managing antibiotics. Immunosuppression is being managed by GI and cyclosporine and mycophenolate levels were ordered by Dr. Wilson. 3. Bladder appeared distended on ultrasound, but was okay on CT. We will check a bladder scan. He has good urine output. 4. Cautioned on vancomycin use in the setting of renal insufficiency. 5. He is on Solu-Cortef as well as IV fluids. 6. We will watch bicarbonate. 7. He will need a repeat UA at a later time. 8. Check labs again in the a.m. Thank you for requesting my opinion in the care and management of this patient. <ELECTRONICALLY SIGNED> By: Melania Li MD 05/21/18 1424 1038 1307Abiargenis Li MD /nt
== END 2018-05-03 17:15 | disposition home or self-care (01) | DRG 871 ==
LOC: M.ERS 09:41 → M.ICU 11:24 → M.TBA-ER 11:24 → M.3W 11:24 → M.ICU 12:48 → M.3W 04-28 10:24 → M.2W 04-30 16:31
PROVIDERS: Family Medicine; Internal Medicine; Internal Medicine Nephrology; Nurse Practitioner Adult Health; ADMIT Internal Medicine
PROC: 0FJB8ZZ Inspection of Hepatobiliary Duct, Via Natural or Artificial Opening Endoscopic (ICD-10-PCS; principal; 2018-05-01)
PROC: 0F778ZZ Dilation of Common Hepatic Duct, Via Natural or Artificial Opening Endoscopic (ICD-10-PCS; 2018-05-01)
PROC: 0F798DZ Dilation of Common Bile Duct with Intraluminal Device, Via Natural or Artificial Opening Endoscopic (ICD-10-PCS; 2018-05-01)
PROC: 02H633Z Insertion of Infusion Device into Right Atrium, Percutaneous Approach (ICD-10-PCS; 2018-05-03)
PROC: B244YZZ Ultrasonography of Right Heart using Other Contrast (ICD-10-PCS; 2018-05-03)
DX: A41.89 Other specified sepsis (principal); N17.0 Acute kidney failure with tubular necrosis; K83.0 Cholangitis; B17.9 Acute viral hepatitis, unspecified; E87.1 Hypo-osmolality and hyponatremia; I47.1 Supraventricular tachycardia; I48.92 Unspecified atrial flutter; Z94.4 Liver transplant status; R65.20 Severe sepsis without septic shock; I10 Essential (primary) hypertension; E78.5 Hyperlipidemia, unspecified; K21.9 Gastro-esophageal reflux disease without esophagitis; E80.6 Other disorders of bilirubin metabolism; D64.9 Anemia, unspecified; R31.9 Hematuria, unspecified; E11.9 Type 2 diabetes mellitus without complications; B96.89 Other specified bacterial agents as the cause of diseases classified elsewhere; E87.6 Hypokalemia; R74.0 Nonspecific elevation of levels of transaminase and lactic acid dehydrogenase [LDH]; E80.7 Disorder of bilirubin metabolism, unspecified; Z88.8 Allergy status to other drugs, medicaments and biological substances; Z86.19 Personal history of other infectious and parasitic diseases; Z82.49 Family history of ischemic heart disease and other diseases of the circulatory system; Z79.899 Other long term (current) drug therapy

== ENCOUNTER 2018-05-05 16:03 | Emergency (ER) | payer MEDICARE, OTHER ==
[~2018-05-05] VITALS: Ht 162.6 cm; Wt 50.8 kg
[~2018-05-05 16:03] MED LIST changes: -LOPRESSOR50 PO; -MYCOPHENOLIC A360 MG PO; -ROCEPHIN 11 GM/1001 IV
[2018-05-05 16:45] LABS: MCH 31.5 pg (26.0-34.0); MCHC 34.7 g/dL (28.0-37.0); MCV 90.8 fL (80.0-100.0); MPV 7.6 fl. (7.2-11.1); NUCLEATED RBCS 0 /100WBC; PLATELET COUNT* 319 thou/uL (150-400); RBC 3.19 mil/uL (4.50-6.00); RDW-CV 15.3 % (10.5-14.5); WBC 5.7 thou/uL (4.0-11.0)
[2018-05-05 16:54] LABS: ANION GAP 5 mmol/L (7-16); BUN 25 mg/dL (7-18); CALCIUM 8.3 mg/dL (8.5-10.1); CHLORIDE 99 mmol/L (98-107); CO2 32 mmol/L (21-32); CREATININE 1.1 mg/dL (0.6-1.3); GLUCOSE 115 mg/dL (70-99); POTASSIUM 3.7 mmol/L (3.5-5.1); SODIUM 136 mmol/L (136-145)
[2018-05-05 17:05] LABS: APTT 24.1 Seconds (25.0-31.3); INR 1.1; PROTIME 10.7 Seconds (9.20-11.50)
[2018-05-05 17:09] LABS: ALBUMIN 2.7 g/dL (3.4-5.0); ALKALINE PHOSPHATASE 324 U/L (46-116); NT-PRO BRAIN NAT PEPTIDE 6838 pg/mL (<300); SGOT 61 U/L (15-37); SGPT 119 U/L (30-65); TOTAL BILIRUBIN 1.7 mg/dL (<0.1-1.0); TOTAL PROTEIN 6.3 g/dL (6.4-8.2); TROPONIN-I LEVEL <0.06 ng/mL (<0.06)
[2018-05-05 17:32] LABS: ABSOLUTE LYMPHOCYTES 0.9 thou/uL (0.8-5.3); ABSOLUTE MONOCYTES 1.1 thou/uL (0.0-1.2); ABSOLUTE NEUTROPHILS 3.7 thou/uL (1.6-8.1); METAMYELOCYTES 2 %; PLATELET ESTIMATE ADEQUATE
[2018-05-05 17:33] LABS: ANISOCYTOSIS Occasional; CLUMPED PLTS OCCASIONAL
[2018-05-05 17:57] LABS: URINE BILIRUBIN NEGATIVE (Negative); URINE BLOOD NEGATIVE (Negative); URINE CLARITY CLEAR; URINE COLOR YELLOW; URINE GLUCOSE-RANDOM NEGATIVE (Negative); URINE KETONES NEGATIVE (Negative); URINE LEUKOCYTES-REFLEX NEGATIVE (Negative); URINE NITRITE-REFLEX NEGATIVE (Negative); URINE PROTEIN NEGATIVE (Negative); URINE SPECIFIC GRAVITY <= 1.005 (1.005-1.030); URINE UROBILINOGEN 0.2 E.U./dl (0.2-1.0)
[2018-05-05 19:39] VITALS: BP 140/87
--- NOTE | 2018-05-06 13:04 | EKG ---
[place] [address] ELECTROCARDIOGRAM REPORT Name: VICENTE LEHMAN Room: 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 : 1950 Requested By: Gustabo Vargas Order Number: [id number] MD: Todd Suarez Measurements Intervals [place] Rate: 97 P: [place]: QRS: -52 QRSD: 94 T: 75 QT: 477 QTc: 606 Interpretive Statements Atrial flutter Left anterior fascicular block RSR' in V1 or V2, right VCD or R Compared to ECG 05/02/2018 15:55:51 RSR' in V1 or V2 now present Electronically Signed On 05-06-2018 13:03:56 CDT by Todd Suarez [email or web address] <ELECTRONICALLY SIGNED> By: Todd Suarez MD, [facility] 05/06/18 1303 1643 1643 Todd Suarez MD, [facility] /EPI
== END 2018-05-05 19:39 | disposition home or self-care (01) ==
LOC: M.ERS 16:03
PROVIDERS: Family Medicine
DX: R60.0 Localized edema (principal); I10 Essential (primary) hypertension; K21.9 Gastro-esophageal reflux disease without esophagitis; E78.5 Hyperlipidemia, unspecified; Z94.4 Liver transplant status; Z88.8 Allergy status to other drugs, medicaments and biological substances

== ENCOUNTER 2018-05-17 10:23 | Inpatient (IN) | payer MEDICARE, OTHER ==
[~2018-05-17] VITALS: Ht 162.6 cm; Wt 44.0 kg
[2018-05-17 10:26] VITALS: BP 107/66
[2018-05-17] MEDS ORDERED: ROCEPHIN 11 GM/1001 IV (10:50)
[2018-05-17 10:58] LABS: ABSOLUTE LYMPHOCYTES 0.8 thou/uL (0.8-5.3); ABSOLUTE MONOCYTES 0.8 thou/uL (0.0-1.2); ABSOLUTE NEUTROPHILS 3.3 thou/uL (1.6-8.1); BASOPHILS 0.4 %; EOSINOPHILS 0.2 %; HEMATOCRIT 27.8 % (42.0-52.0); HEMOGLOBIN 9.5 gm/dL (14.0-18.0); LYMPHOCYTES 15.7 %; MCH 31.2 pg (26.0-34.0); MCHC 34.1 g/dL (28.0-37.0); MCV 91.5 fL (80.0-100.0); MONOCYTES 16.7 %; MPV 8.2 fl. (7.2-11.1); NUCLEATED RBCS 0 /100WBC; PLATELET COUNT* 242 thou/uL (150-400); RBC 3.04 mil/uL (4.50-6.00); RDW-CV 15.9 % (10.5-14.5); WBC 4.9 thou/uL (4.0-11.0)
[2018-05-17 11:08] LABS: PROTIME 9.7 Seconds (9.20-11.50)
[2018-05-17 11:09] LABS: ANION GAP 8 mmol/L (7-16); BUN 23 mg/dL (7-18); CALCIUM 9.2 mg/dL (8.5-10.1); CHLORIDE 100 mmol/L (98-107); CO2 26 mmol/L (21-32); CREATININE 1.5 mg/dL (0.6-1.3); GLUCOSE 151 mg/dL (70-99); POTASSIUM 4.2 mmol/L (3.5-5.1); SODIUM 134 mmol/L (136-145)
[2018-05-17 11:20] LABS: ALBUMIN 2.7 g/dL (3.4-5.0); ALKALINE PHOSPHATASE 494 U/L (46-116); LIPASE 308 U/L (73-393); NT-PRO BRAIN NAT PEPTIDE 2115 pg/mL (<300); SGOT 54 U/L (15-37); SGPT 81 U/L (30-65); TOTAL BILIRUBIN 2.7 mg/dL (<0.1-1.0); TOTAL PROTEIN 6.7 g/dL (6.4-8.2); TROPONIN-I LEVEL <0.06 ng/mL (<0.06)
[2018-05-17 12:45] VITALS: BP 105/70
[2018-05-17] MEDS ORDERED: MYCOPHENOLIC A360 MG PO (14:00)
[2018-05-17 16:00] VITALS: BP 73/39
--- NOTE | 2018-05-17 19:36 | EKG ---
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: [facility] : 1950 Requested By: Eloy Quintana Order Number: [id number] MD: Nilton Gonzales Measurements Intervals [place] Rate: 121 P: [place]: QRS: -73 QRSD: 92 T: -4 QT: 304 QTc: 432 Interpretive Statements Atrial flutter with variable AV block Left anterior fascicular block Borderline repolarization abnormality Compared to ECG 05/05/2018 16:43:03 specific changes noted Electronically Signed On 05-17-2018 19:36:08 CDT by Nilton Gonzales [email or web address] <ELECTRONICALLY SIGNED> By: Nilton Gonzales MD, [facility] 05/17/18 1936 1027 1027 Nilton Gonzales MD, [facility] /EPI
[2018-05-17 20:00] VITALS: BP 101/64
[2018-05-18] VITALS: BP 103/58
[2018-05-18 04:00] VITALS: BP 99/64
[2018-05-18 07:59] VITALS: BP 113/73
[2018-05-18 12:00] VITALS: BP 115/70
[2018-05-18 16:02] VITALS: BP 130/64
[2018-05-18 20:00] VITALS: BP 109/72
[2018-05-19] VITALS: BP 100/68
[2018-05-19 04:00] VITALS: BP 111/69
[2018-05-19 08:00] VITALS: BP 112/77
[2018-05-19 12:19] VITALS: BP 95/60
--- NOTE | 2018-05-19 13:42 | EKG ---
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: : 1950 Requested By: Latrice Case Order Number: [id number] Reading MD: Nilton Gonzales Measurements Intervals [place] Rate: 102 P: [place]: QRS: -82 QRSD: 102 T: 65 QT: 366 QTc: 477 Interpretive Statements Atrial fibrillation Left anterior fascicular block Minimal ST depression, inferior leads Borderline prolonged QT interval Compared to ECG 05/17/2018 10:27:31 ST (T wave) deviation now present Electronically Signed On 05-19-2018 13:41:48 CDT by Nilton Gonzales [email or web address] <ELECTRONICALLY SIGNED> By: Nilton Gonzales MD, [facility] 05/19/18 1341 0905 0905 Nilton Gonzales MD, [facility] /EPI
[2018-05-19 15:52] VITALS: BP 101/47
[2018-05-19 20:00] VITALS: BP 108/69
[2018-05-20] VITALS: BP 90/52
[2018-05-20 04:00] VITALS: BP 98/61
[2018-05-20 08:00] VITALS: BP 96/59
[2018-05-20 09:01] VITALS: BP 96/59
[2018-05-20 09:07] VITALS: BP 96/59
[2018-05-20] MEDS ORDERED: LOPRESSOR50 PO (09:09)
[2018-05-20] MEDS ORDERED: FLECAINIDE ACET50 M1 PO (09:09)
[2018-05-20 09:54] VITALS: BP 96/59
== END 2018-05-20 10:25 | disposition home health service (06) | DRG 871 ==
LOC: M.ERS 10:23 → M.TBA-ER 11:30 → M.2W 11:30
PROVIDERS: Emergency Medicine; ADMIT Internal Medicine
PROC: 02HV33Z Insertion of Infusion Device into Superior Vena Cava, Percutaneous Approach (ICD-10-PCS; principal; 2018-05-17)
DX: A40.8 Other streptococcal sepsis (principal); E43 Unspecified severe protein-calorie malnutrition; I48.92 Unspecified atrial flutter; I47.1 Supraventricular tachycardia; E87.1 Hypo-osmolality and hyponatremia; N17.9 Acute kidney failure, unspecified; Z94.4 Liver transplant status; Z68.1 Body mass index [BMI] 19.9 or less, adult; I10 Essential (primary) hypertension; K21.9 Gastro-esophageal reflux disease without esophagitis; E78.5 Hyperlipidemia, unspecified; I48.91 Unspecified atrial fibrillation; T46.2X5A Adverse effect of other antidysrhythmic drugs, initial encounter; E80.6 Other disorders of bilirubin metabolism; Z86.19 Personal history of other infectious and parasitic diseases; Z88.8 Allergy status to other drugs, medicaments and biological substances; Z79.82 Long term (current) use of aspirin; Z79.899 Other long term (current) drug therapy; Z82.49 Family history of ischemic heart disease and other diseases of the circulatory system

== ENCOUNTER → 2018-06-02 | Outpatient (CLI) | payer MEDICARE, OTHER ==
[~2018-06-02] MED LIST changes: +LOPRESSOR50 PO; +MYCOPHENOLIC A360 MG PO; +ROCEPHIN 11 GM/1001 IV
== END ==
LOC: M.MRI 08:03
DX: N28.1 Cyst of kidney, acquired (principal); J90 Pleural effusion, not elsewhere classified; R60.1 Generalized edema; R79.89 Other specified abnormal findings of blood chemistry; Z94.4 Liver transplant status

== ENCOUNTER 2018-10-02 07:54 | Inpatient (IN) | payer MEDICARE, OTHER ==
[~2018-10-02] VITALS: Ht 162.6 cm; Wt 45.4 kg
--- NOTE | ~2018-10-02 | CON ---
[address] [address] CONSULTATION Name: VICENTE LEHMAN Room: [address] IN M.R.#: [id number] Admission: 10/02/18 Attend Phys: Moraima Cabrales MD Discharge: Date of : 50 Report #: [id number] THIS REPORT FOR: //name// CC: Moraima Villanueva DATE OF SERVICE: 10/03/2018 This is a consultation obtained by Dr. Cabrales for acute kidney injury. HISTORY OF PRESENT ILLNESS: The patient is a 67-year-old gentleman, seen in consultation. 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 This was done in 1989. The patient is maintained on cyclosporine and mycophenolate. He has had history of SVT and atrial fibrillation in the past. Recently, his medications were stopped because of bradycardia. He came to the hospital yesterday with worsening palpitations for the past few days. He was found to be in SVT, which he required IV adenosine to abort. He has been in the hospital since last night, has remained in the sinus. His blood pressure was stable overnight; however, this morning his blood pressure is now in the 90s. He reports a fever overnight and sweating along with that. No cough, no phlegm, no chest pain. He is not short of breath. He denies any abdominal pain. He has no difficulty emptying his bladder or dysuria. No skin rashes. He is itchy, but he has hyperbilirubinemia and history of biliary stenting. We were asked to see him because of acute kidney injury. His creatinine had bumped from a baseline of around 1-1.3 up to 2.2 on admission, and is down to 1.7 this morning. PAST MEDICAL HISTORY: History of liver transplant in 1989, history of hepatitis C infection before that secondary to blood transfusions in 1958 when he had a heart surgery done, history of hypertension, GERD, dyslipidemia, history of biliary duct stents which had to be removed because of Enterococcus and E. coli blood stream infections, history of atrial fibrillation and flutter, immunosuppression with mycophenolate and cyclosporine. SOCIAL HISTORY: He denies any smoking. He does not use alcohol. REVIEW OF SYSTEMS: This morning, fever overnight. No chest pain, no cough, no respiratory symptoms. No skin lesions. He has diffuse itching which is chronic for him. No abdominal pain reported. No diarrhea or GI symptoms. PHYSICAL EXAMINATION: VITAL SIGNS: Today, his blood pressure early this morning was in the 120s, but this morning has been in the high 80s to low 90s. He is tachycardic. His temperature was 39.4 overnight. GENERAL: He is awake, he is alert, [place] [address] CONSULTATION Name: VICENTE LEHMAN Room: [address] IN [facility]#: [id number] Admission: 10/02/18 Attend Phys: Moraima Cabrales MD Discharge: Date of : 50 Report #: [id number] SKIN: Dry. Mucous membranes are very dry. NECK: Veins are flat. HEART: Regular S1 and S2. ABDOMEN: Soft. LUNGS: Clear. EXTREMITIES: Show chronic skin changes consistent with chronic cyclosporine use. I do not see any rashes or any evidence of cellulitis. LABORATORY DATA: White count is 3.8, hemoglobin is 9.4, platelets are 281,000. Metabolic panel: Sodium is 138, potassium is 4.5, chloride 104, bicarbonate 24, BUN is 33, creatinine is 1.7, down from 2.2 yesterday; calcium 9.4, magnesium 1.6, bilirubin 2.8, AST 67, ALT 86, alkaline phosphatase 413, albumin 2.8 and lipase 1015. Urinalysis shows trace protein, but no evidence of any UTI. INR is 1. IMAGING STUDIES: Kidneys both sides bilaterally normal size with no evidence of any hydronephrosis. Chest x-ray, no acute cardiopulmonary process was identified. ASSESSMENT: 1. Acute kidney injury in all likelihood secondary to hemodynamic compromise secondary to the episodes of supraventricular tachycardia going on for the past few days. 2. The patient is also on metoprolol and losartan at baseline. 3. Hypotensive this morning, which may actually further worsen his renal function. 4. High risk for infections and sepsis secondary to immunocompromised state. 5. History of liver transplant. PLAN: 1. Discontinue the losartan for now. 2. Cardiac medications per Cardiology, but metoprolol needs to be held until further evaluation by Cardiology. 3. Give a normal saline 1 liter bolus. 4. Increase the saline rate to 115 an hour if the hypotension continues. 5. Broad spectrum antibiotics have been initiated. He is on Zosyn and vancomycin. 6. Monitor vancomycin levels closely. 7. Send urine electrolytes. 8. Follow closely[place] [address] CONSULTATION Name: VICENTE LEHMAN Room: [address] IN M.R.#: [id number] Admission: 10/02/18 Attend Phys: Moraima Cabrales MD Discharge: Date of : 50 Report #: [id number] Thank you for the consultation. We will continue to follow and provide necessary support during the hospital stay. By: 0902 [id number] Lantigua MD /nicolette
[2018-10-02 07:58] VITALS: BP 103/65
[2018-10-02] MEDS ORDERED: KLOR-CON 1010 MEQ PO (08:07)
[2018-10-02] MEDS ORDERED: PROPAFENONE 15150 MG PO (08:07)
[2018-10-02 08:35] LABS: HEMOGLOBIN 10.7 gm/dL (14.0-18.0); MCH 30.4 pg (26.0-34.0); MCHC 33.3 g/dL (28.0-37.0); MCV 91.3 fL (80.0-100.0); MPV 8.2 fl. (7.2-11.1); NUCLEATED RBCS 0 /100WBC; PLATELET COUNT* 289 thou/uL (150-400); RBC 3.51 mil/uL (4.50-6.00); WBC 5.4 thou/uL (4.0-11.0)
[2018-10-02 08:49] LABS: PROTIME 9.8 Seconds (9.20-11.50)
[2018-10-02 08:50] LABS: ANION GAP 13 mmol/L (7-16); BUN 36 mg/dL (7-18); CALCIUM 10.4 mg/dL (8.5-10.1); CHLORIDE 98 mmol/L (98-107); CO2 24 mmol/L (21-32); CREATININE 2.2 mg/dL (0.6-1.3); GLUCOSE 129 mg/dL (70-99); POTASSIUM 4.4 mmol/L (3.5-5.1); SODIUM 135 mmol/L (136-145)
[2018-10-02 09:01] LABS: ALBUMIN 3.3 g/dL (3.4-5.0); ALKALINE PHOSPHATASE 438 U/L (46-116); LIPASE 1015 U/L (73-393); MAGNESIUM 1.6 mg/dL (1.8-2.4); NT-PRO BRAIN NAT PEPTIDE 646 pg/mL (<300); SGOT 74 U/L (15-37); SGPT 96 U/L (30-65); TOTAL BILIRUBIN 3.7 mg/dL (<0.1-1.0); TOTAL PROTEIN 7.4 g/dL (6.4-8.2); TROPONIN-I LEVEL <0.06 ng/mL (<0.06)
[2018-10-02 09:22] LABS: ABSOLUTE BASOPHILS 0.1 thou/uL (0.0-0.2); ABSOLUTE MONOCYTES 1.5 thou/uL (0.0-1.2); ABSOLUTE NEUTROPHILS 2.8 thou/uL (1.6-8.1); PLATELET ESTIMATE ADEQUATE; TARGET CELLS 2+
[2018-10-02 11:04] VITALS: BP 117/68
[2018-10-02 11:15] VITALS: BP 107/77
--- NOTE | 2018-10-02 11:15 | NUR ---
RECEIEVED REPORT. PT TRANSFERRED TO ROOM 204 VIA CART. VSS. CARDIAC MONTIORING IN PLACE SR. ADMISSION HISTORY AND ASSESSMENT COMPLETED CHARTED. PT ALERT AND ORIETNED. PT ON RA. IV SALINE LOCKED. PT DNEIES ANY PAIN OR DISCOMFORT. PT ITCHING ALL OVER. PT REPORTS THIS IS NORMAL FOR HIM. DR. MCINTOSH IN ROOM TO SEE PT. PT'[facility] SPOUSE AT [facility]. PT ORIETNED TO ROOM AND CALL LIGHT. CALL LIGHT IS WITHIN REACH. WILL CONTINUE TO MONTIOR FOR DURATION OF SHFIT.
[2018-10-02 16:23] VITALS: BP 102/54
--- NOTE | 2018-10-02 16:51 | NUR ---
VSS. CARDIAC MONTIORING IN PLACE SR. PT PROGRESSING TOWARDS GOALS. PT REMAINS ON RA. IVF INFUSING PER ORDERS. PT IS UP AD CLEO IN ROOM. PT HAS VOICED NO COMPLAINTS OF PAIN OR DISCOMFORT THIS AM. PT INFORMED OF PLAN OF CARE. CALL LIGHT IS WITHIN REACH. WILL CONTINUE TO MONITOR FOR DURAITION OF SHIFT.
[2018-10-02 19:40] VITALS: BP 113/64
[2018-10-03 00:43] LABS: HEMATOCRIT 27.8 % (42.0-52.0); HEMOGLOBIN 9.4 gm/dL (14.0-18.0); MCH 30.9 pg (26.0-34.0); MCHC 33.8 g/dL (28.0-37.0); MCV 91.5 fL (80.0-100.0); RBC 3.04 mil/uL (4.50-6.00); RDW-CV 17.6 % (10.5-14.5); WBC 3.8 thou/uL (4.0-11.0)
[2018-10-03 00:44] LABS: CALCIUM 9.4 mg/dL (8.5-10.1); CREATININE 1.7 mg/dL (0.6-1.3); POTASSIUM 4.5 mmol/L (3.5-5.1)
[2018-10-03 00:49] LABS: ALBUMIN 2.8 g/dL (3.4-5.0); TOTAL BILIRUBIN 2.8 mg/dL (<0.1-1.0); TOTAL PROTEIN 6.6 g/dL (6.4-8.2)
[2018-10-03 01:10] VITALS: BP 152/78
[2018-10-03 04:23] VITALS: BP 125/64
[2018-10-03 06:09] LABS: URINE BILIRUBIN NEGATIVE (Negative); URINE BLOOD NEGATIVE (Negative); URINE CLARITY CLEAR; URINE COLOR YELLOW; URINE GLUCOSE-RANDOM NEGATIVE (Negative); URINE KETONES NEGATIVE (Negative); URINE LEUKOCYTES-REFLEX NEGATIVE (Negative); URINE NITRITE-REFLEX NEGATIVE (Negative); URINE PROTEIN TRACE (Negative); URINE UROBILINOGEN 0.2 E.U./dl (0.2-1.0)
--- NOTE | 2018-10-03 06:48 | NUR ---
PT PULSE ELEVATED AND TEMP ELEVATED, PROVIDER NOTIFIED ORDERS RECIEVED. PT REPORTS INCREASE WEAKNESS, FALL PRECAUTIONS IMPLIMENTED. SEE MAR. SEE CHARTING. HOURLY ROUNDING FOR SAFETY.
[2018-10-03 08:00] VITALS: BP 85/742
--- NOTE | 2018-10-03 08:00 | NUR ---
AM ASSESSMENT COMPLETE, DEFER TO COMPUTER CHARTING. ASSISTANT MEDIA BUYER TRACKING ST. ALERT ORIENTED. BP LOW THIS AM, DR REGALADO WITH RENAL INTO SEE PATIENT - NOTIFIED OF HYPOTENSION. PATIENT DENIES DIZZINESS, PAIN, NAUSEA AT THIS TIME. IV INFUSING PER ORDERS. CALL LIGHT WITHIN REACH. WILL MONITOR.
[2018-10-03 11:50] VITALS: BP 85/43
[2018-10-03 15:36] VITALS: BP 85/74
--- NOTE | 2018-10-03 16:34 | NUR ---
LIGHTING ADVISER TRACKING SR. REPORTING STARTING TO FEEL BETTER IN AFTERNOON. NO COMPLAINTS OF PAIN, DIZZINESS OR ANY DISCOMFORT TO NURSING. TOLERATING DIET. FAMILY AT BEDSIDE. BP CONTINUES TO LOW - ASYSTOMATIC. CALL LIGHT WTIHIN REACH, WILL CONTINUE WITH PLAN OF CARE.
[2018-10-03 19:30] VITALS: BP 102/57
[2018-10-04 00:01] VITALS: BP 100/53
[2018-10-04 04:19] VITALS: BP 125/67
[2018-10-04 05:00] LABS: HEMATOCRIT 24.6 % (42.0-52.0); HEMOGLOBIN 8.3 gm/dL (14.0-18.0); MCH 30.9 pg (26.0-34.0); MCHC 33.7 g/dL (28.0-37.0); MCV 91.8 fL (80.0-100.0); RBC 2.68 mil/uL (4.50-6.00); RDW-CV 17.5 % (10.5-14.5); WBC 9.6 thou/uL (4.0-11.0)
[2018-10-04 05:42] LABS: CREATININE 1.9 mg/dL (0.6-1.3); PHOSPHORUS* 3.1 mg/dL (2.5-4.9); POTASSIUM 4.1 mmol/L (3.5-5.1)
--- NOTE | 2018-10-04 06:50 | NUR ---
VITALS WNL. SEE MAR. SEE CHARTING. HOURLY ROUNDING FOR SAFETY.
[2018-10-04 07:30] VITALS: BP 101/53
--- NOTE | 2018-10-04 10:18 | EKG ---
[place] [address] ELECTROCARDIOGRAM REPORT Name: VICENTE LEHMAN Room: [address] ADM IN .R.#: [id number] Admission: 10/02/18 Attend Phys: Moraima Cabrales MD Discharge: Date of : 50 Report #: [id number] THIS REPORT FOR: //name// [facility] ED Test Date: 2018-10-02 Test Time: 08:03:11 Pat Name: VICENTE LEHMAN Department: Room: [facility] Gender: M Tag Clerk: JULIEN Ndiaye : 1950 Requested By: Martin Barnett Order Number: [id number] Pallavi MD: Jeremi Candelaria Measurements Intervals [place] Rate: 177 P: 0 [place]: 60 QRS: -63 QRSD: 82 T: 75 QT: 276 QTc: 474 Interpretive Statements Supraventricular tachycardia LAD, consider left anterior fascicular block Abnormal R-wave progression, late transition Repolarization abnormality, prob rate related Baseline wander in lead(s) V1 Compared to ECG 05/19/2018 09:05:39 Atrial fibrillation no longer present Electronically Signed On 10-04-2018 10:18:15 ACID RETORT OPERATOR by Jeremi Candelaria [email or web address] <ELECTRONICALLY SIGNED> By: Jeremi Candelaria MD, FACC 10/04/18 1018 2 0803 Jeremi Candelaria MD, FACC /EPI
--- NOTE | 2018-10-04 10:19 | EKG ---
[place] [address] ELECTROCARDIOGRAM REPORT Name: VICENTE LEHMAN Room: [address] ADM IN M.R.#: [id number] Admission: 10/02/18 Attend Phys: Moraima Cabrales MD Discharge: Date of : 50 Report #: [id number] THIS REPORT FOR: //name// [facility] ED Test Date: 2018-10-02 Test Time: 08:13:52 Pat Name: VICENTE LEHMAN Department: Room: [facility] Gender: Ct Scan Tech: JULIEN Ndiaye : 1950 Requested By: Martin Barnett Order Number: [id number] MD: Jeremi Candelaria Measurements Intervals [place] Rate: 101 P: 77 [place]: 149 QRS: -67 QRSD: 84 T: 58 QT: 327 QTc: 424 Interpretive Statements Sinus tachycardia Left anterior fascicular block Abnormal R-wave progression, late transition Electronically Signed On 10-04-2018 10:19:14 HOME DESIGNER by Jeremi Candelaria [email or web address] <ELECTRONICALLY SIGNED> By: Jeremi Candelaria MD, [facility] 10/04/18 1019 2 2 Jeremi Candelaria MD, [facility] /EPI
[2018-10-04 11:51] VITALS: BP 113/59
--- NOTE | 2018-10-04 14:09 | NUR ---
Pt is A&O. Resides at home with his . Normally active and independent. Pt has a walker and cane at home that he can use if necessary. No hx of SNF. Hx of [facility] . Per Dr, Pt wants to change PCPs, CM provided him with a directory of PCPs per his insurance. Pt also had questions regarding IVABX that were set up for him in April. Per Pt, he was informed that his prescriptions would be covered at 100%, but Pt ended up recieving a bill for $1500 and arranged a payment plan. CM phoned [facility] regarding the situation, they are to investigate and update Pt and CM with findings. Possible dc to home tomorrow. No needs anticipated. Following.
[2018-10-04 15:38] VITALS: BP 148/61
--- NOTE | 2018-10-04 18:14 | NUR ---
PT ABLE TO AMBULATE IN THE ROOM WITHOUT ASSISTANCE. PT ASKING TO GO HOME IN THE AM. NO FEVERS, NO PAIN.
[2018-10-04 19:50] VITALS: BP 132/76
[2018-10-05] VITALS (8 sets, daily range): BP systolic 116–137; BP diastolic 53–85
[2018-10-05 04:52] LABS: HEMATOCRIT 21.6 % (42.0-52.0); HEMOGLOBIN 7.3 gm/dL (14.0-18.0); MCH 30.9 pg (26.0-34.0); MCHC 33.8 g/dL (28.0-37.0); MCV 91.4 fL (80.0-100.0); MPV 8.5 fl. (7.2-11.1); RBC 2.36 mil/uL (4.50-6.00); RDW-CV 17.8 % (10.5-14.5); WBC 5.8 thou/uL (4.0-11.0)
--- NOTE | 2018-10-05 05:40 | NUR ---
VITALS WNL. SEE MAR. SEE CHARTING. HOURLY ROUNDING FOR SAFETY.
[2018-10-05 05:55] LABS: ALBUMIN 2.3 g/dL (3.4-5.0); CALCIUM 8.7 mg/dL (8.5-10.1); CREATININE 1.6 mg/dL (0.6-1.3); POTASSIUM 3.5 mmol/L (3.5-5.1); TOTAL BILIRUBIN 5.5 mg/dL (<0.1-1.0); TOTAL PROTEIN 5.1 g/dL (6.4-8.2)
[2018-10-05] MEDS ORDERED: TOPROL XL25 MG PO (10:59)
[2018-10-05] MEDS ORDERED: PROPAFENONE 15150 MG PO (10:59)
--- NOTE | 2018-10-05 11:05 | CON ---
[address] [address] CONSULTATION Name: VICENTE LEHMAN Room: [address] IN M.R.#: [id number] Admission: 10/02/18 Attend Phys: Moraima Cabrales MD Discharge: Date of : 50 Report #: [id number] THIS REPORT FOR: //name// CC: Moraima Villanueva HISTORY OF PRESENT ILLNESS: The patient is a pleasant 67-year-old male who is well known to our service. The patient has a past medical history of orthotopic liver transplantation at [place], and recently was admitted multiple times for cholangitis and biliary stones. The patient was seen about 2 weeks back by me at [facility] where an ultrasound-guided liver biopsy was performed. The patient was then transferred to [place] where ERCP and biliary stenting was performed. He now presents to the hospital with palpitations and fever. The patient was noted to have one episode of fever last night. The patient continues to report intermittent pruritus that he has had on and off for the last several months. PAST MEDICAL HISTORY: Hypertension, orthotopic liver transplant. PAST SURGICAL HISTORY: Remote history of cardiac surgery, liver transplant in 1989, several surgeries for cutaneous cancers. FAMILY HISTORY: Significant for cardiac disease. No history of colorectal cancer or liver cancer. SOCIAL HISTORY: The patient denies smoking, alcohol or recreational drug use. REVIEW OF SYSTEMS: A comprehensive 10-point review of systems negative except for what is mentioned here. PHYSICAL EXAMINATION: VITAL SIGNS: Temperature 36.9, pulse rate 84, respirations 18, blood pressure 85/74. GENERAL: The patient is alert, awake, oriented x 3. HEENT: Pupils are equal, round, reactive to light and accommodation. Mucous membranes are moist. There is mild icterus noted on the sclerae. CARDIOVASCULAR: Rate and rhythm regular, S1, S2 present. LUNGS: Clear to auscultation bilaterally. ABDOMEN: Soft. There is no distention, guarding or rigidity. EXTREMITIES: Warm and well perfused. NEUROLOGIC: There is no focal neurological deficit. LABORATORY DATA: Hemoglobin 9.4, hematocrit 27.8, platelet count 281, WBC count 3.8. Sodium 138, potassium 4.5, chloride 104, bicarbonate 24, BUN 33, creatinine 0.7, total bilirubin 2.8, AST 67, ALT 86, alkaline phosphatase 413, lipase 1015[place] [address] CONSULTATION Name: VICENTE LEHMAN Room: [address] IN [facility]#: [id number] Admission: 10/02/18 Attend Phys: Moraima Cabrales MD Discharge: Date of : 50 Report #: [id number] IMAGING: Abdominal ultrasound demonstrates small bilateral renal cysts, post-surgical changes of cholecystectomy with no evidence of biliary obstruction. No evidence of cirrhosis, steatosis. ASSESSMENT AND PLAN: This is a pleasant 67-year-old male with past medical history significant for orthotopic liver transplant with multiple recent admissions for cholangitis. The patient was seen by me 2 weeks back at [facility] where an ERCP and dilation of biliary anastomosis was performed. Subsequently, ultrasound-guided liver biopsy was performed and this demonstrated mild portal inflammation suggestive of resolving cholangitis. The patient was then subsequently transferred to [facility] where his original liver transplant was performed and there the patient underwent another ERCP with biliary stent placement. He now presents with supraventricular tachycardia. 1. Obstructive jaundice. 2. Pruritus. 3. Elevated lipase. We will continue to monitor his BMP daily. There is no indication for endoscopic intervention at this time. Bilirubin appears to be trending down spontaneously. If we notice an uptick in the bilirubin an ERCP can be considered. I will continue the Zosyn for broad spectrum coverage and will monitor cultures that were drawn previously. I am going to start the patient on Atarax for pruritus. Although the patient's lipase is elevated, there is no evidence of pancreatitis either by symptoms or imaging, therefore we will just continue to monitor him clinically. <ELECTRONICALLY SIGNED> By: Travis Stover MD 10/05/18 1105 [id number] [id number] Stover MD /nt
--- NOTE | 2018-10-05 13:35 | NUR ---
ASSUMED PT CARE AT 0730 REPORT RECEIVED FROM NURSE. PT IS AOX4 SR ON CUSTOMER SUPPORT TECHNICIAN. ON RA. SATURATION ABOVE 95%. PT GOAL IS TO GO HOME TODAY. MEDICATIONS ADMISNISTERED PRESCRIBED. DC ORDER RECEIVED. PT ATE LUNCH. DC INSTRUCTIONS GIVEN. NEW PRESCRIPTIONS SCRIPT GIVEN. PT STATES UNDERSTANDING. PT LEFT UNIT AT 1300 ACCOMPANIED BY NURSE AND SPOUSE ON A WHEELCHAIR, BELONGINGS BROUGHT ALONG WITH PT.
== END 2018-10-05 13:00 | disposition home or self-care (01) | DRG 682 ==
LOC: M.ERS 07:54 → M.2W 09:22 → M.TBA-ER 09:22 → M.2W 11:15
PROVIDERS: Emergency Medicine Emergency Medical Services; Family Medicine; Internal Medicine Nephrology; ADMIT Internal Medicine
PROC: 5A2204Z Restoration of Cardiac Rhythm, Single (ICD-10-PCS; principal; 2018-10-02)
DX: N17.0 Acute kidney failure with tubular necrosis (principal); K83.1 Obstruction of bile duct; R65.11 Systemic inflammatory response syndrome (SIRS) of non-infectious origin with acute organ dysfunction; I47.1 Supraventricular tachycardia; I48.92 Unspecified atrial flutter; I10 Essential (primary) hypertension; E78.5 Hyperlipidemia, unspecified; K21.9 Gastro-esophageal reflux disease without esophagitis; L29.9 Pruritus, unspecified; I95.9 Hypotension, unspecified; Z98.85 Transplanted organ removal status; Z79.82 Long term (current) use of aspirin; Z79.899 Other long term (current) drug therapy; Z88.8 Allergy status to other drugs, medicaments and biological substances; Z79.2 Long term (current) use of antibiotics; Z85.828 Personal history of other malignant neoplasm of skin; Z79.01 Long term (current) use of anticoagulants; Z82.49 Family history of ischemic heart disease and other diseases of the circulatory system

== ENCOUNTER → 2019-08-31 | Outpatient (CLI) | payer MEDICARE, OTHER ==
[~2019-08-31] MED LIST changes: +KLOR-CON 1010 MEQ PO; +PROPAFENONE 15150 MG PO; +TOPROL XL25 MG PO
== END ==
LOC: M.RAD 14:57
DX: M19.012 Primary osteoarthritis, left shoulder (principal); M19.011 Primary osteoarthritis, right shoulder; M75.82 Other shoulder lesions, left shoulder; M75.81 Other shoulder lesions, right shoulder; M81.0 Age-related osteoporosis without current pathological fracture; M85.88 Other specified disorders of bone density and structure, other site